=== PATIENT | male | born 1950 | race Caucasian/White ===

== ENCOUNTER 2017-07-15 15:53 | Emergency (ER) | payer MEDICARE, BC ==
[2017-07-15 17:12] VITALS: BP 138/82
--- NOTE | 2017-07-15 17:16 | UC ---
Throat Pain/Nasal Hipolito HPI - HPI Summary HPI Summary: 67 y/o male presents to the urgent care c/o sore throat, body aches, sinus congestion with PND and mild productive cough for the pst 2 days. Pt developed fever of 101.8F yesterday and today. He has been taking Tylenol PO to alleviate symptoms. Last taken was 1400pm today. Pt reports nasal congestion has yellowish discharge. He has not taking the flu vaccine this year. - History of Current Complaint Chief Complaint: UCRespiratory Stated Complaint: SORE THROAT/COUGH Time Seen by Provider: 07/15/17 17:05 Hx Obtained From: Patient Onset/Duration: Gradual Onset, Lasting Days - 2 days, Still Present Severity: Moderate Pain Intensity: 8 Pain Scale Used: 0-10 Numeric Cough: Productive - mild with yellowish phlegm Associated Signs & Symptoms: Positive: Sinus Discomfort, Nasal Discharge, Fever - Epiglottits Risk Factors Epiglottis Risk Factors: Negative - Allergies/Home Medications Allergies/Adverse Reactions: Allergies Allergy/AdvReac Type Severity Reaction Status Date / Time Penicillins Allergy Mild Swelling Verified 07/15/17 17:06 Home Medications: Home Medications Atorvastatin* [Lipitor 40 MG*] 40 mg BEDTIME 07/15/17 [History Confirmed ] Sitagliptin Phosphate [Januvia] 50 mg DAILY 07/15/17 [History Confirmed 07/15/17 ] glipiZIDE TAB* [Glucotrol TAB*] 5 mg BID 07/15/17 [History Confirmed 07/15/17] metFORMIN* [Glucophage 1000 MG TAB *] 1 tab BID 07/15/17 [History Confirmed 12/25] PMH/Surg Hx/FS Hx/Imm Hx Previously Healthy: Yes Endocrine History: Diabetes, Dyslipidemia - Surgical History Surgical History: Yes Surgery Procedure, Year, and Place: 2000 nephrectomy. 2004 hernia repair - Family History Known Family History: Positive: Diabetes - Social History Occupation: Retired Lives: With Family Alcohol Use: Rare Substance Use Type: None Smoking Status (MU): Never Smoked Tobacco - Immunization History Most Recent Influenza Vaccination: 2017 Vaccination Up to Date: Yes Review of Systems Constitutional: Fever, Chills, Other - body aches Skin: Negative Eyes: Negative ENT: Nasal Discharge, Sinus Congestion Respiratory: Cough Cardiovascular: Negative Gastrointestinal: Negative Genitourinary: Negative Motor: Negative Neurovascular: Negative Neurological: Headache Psychological: Negative Is Patient Immunocompromised?: No All Other Systems Reviewed And Are Negative: Yes Physical Exam Triage Information Reviewed: Yes Vital Signs: Initial Vital Signs Temp 99.1 F 07/15/17 17:07 Pulse 110 07/15/17 17:07 Resp 26 07/15/17 17:07 BP 138/82 07/15/17 17:07 Pulse Ox 98 07/15/17 17:07 - Additional Comments VITAL SIGNS: Reviewed. GENERAL: Patient is a well developed and nourished male who is sitting comfortable in the examining table. Patient is not in any acute respiratory distress. HEAD AND FACE: No signs of trauma. No ecchymosis, hematomas or skull depressions. No sinus tenderness. EYES: PERRLA, EOMI x 2, No injected conjunctiva, no nystagmus. No photophobia. EARS: Hearing grossly intact. Ear canals and tympanic membranes are within normal limits. Nose: edematous, erythematous nasal mucosa with yellowish nasal discharge. MOUTH: Positive pharynx with erythema, no exudates, mild palatal petechiae. no B/L tonsillar enlargement.Uvula in midline. NECK: Supple, trachea is midline, Positive anterior cervical lymphadenopathy, no JVD, no carotid bruit, no c-spine tenderness, neck with full ROM. No meningeal signs, no Kernig's or brudzinskis signs. CHEST: Symmetric, no tenderness at palpation LUNGS: Clear to auscultation bilaterally. No wheezing or crackles. CVS: Regular rate and rhythm, S1 and S2 present, no murmurs or gallops appreciated. ABDOMEN: Soft, non-tender. No signs of distention. No rebound no guarding, and no masses palpated. Bowel sounds are normal. EXTREMITIES: FROM in all major joints, no edema, no cyanosis or clubbing. NEURO: Alert and oriented x 3. No acute neurological deficits. Speech is normal and follows commands. SKIN: Dry and warm Throat Pain/Nasal Course/Dx - Course Course Of Treatment: 67 y/o male presents to the urgent care c/o sore throat, body aches, sinus congestion with PND and mild productive cough for the pst 2 days. Pt developed fever of 101.8F yesterday and today. He has been taking Tylenol PO to alleviate symptoms. Last taken was 1400pm today. Pt reports nasal congestion has yellowish discharge. He has not taking the flu vaccine this year. [facility] obtained. Pt with pharyngitis on examination. Rapid strep ordered, result: negative. Influenza A&B ordered: Influenza B positive.Pt Rx Tamiflu PO and advised to continue with Tylenol PO to alleviates symptoms of pain and swelling. Advised on hand washing and wear a mask to avoid spreading. Pt advised to rest, eat well and avoid strenuous exercise. If symptoms do not improve or worsen advised to return to the urgent care or f/u with her PCP for further evaluation and treatment. Pt understood and agreed with plan of care. - Differential Dx/Diagnosis Differential Diagnosis/HQI/PQRI: Influenza, Laryngitis, Otitis Media, Pharyngitis, Sinusitis, URI Provider Diagnoses: 1- Influenza B. 2-Pharyngitis. 3- fever Discharge - Discharge Plan Condition: Stable Disposition: HOME Prescriptions: Oseltamivir CAP* [Tamiflu CAP*] 75 mg PO BID #10 cap Patient Education Materials: Influenza (ED) Referrals: Arthur Chris MD [Primary Care Provider] - 2 Days Additional Instructions: 1- Please take the full course of the antiviral to avoid resistance. Encourage hand washing and wear a mask to avoid spreading. 2-Please continue taking Tylenol PO q6-8hrs prn as instructed after meals to alleviate fever, and sore throat. Increase fluid intake, eat well, rest and avoid strenuous exercise 3-If symptoms do not improve or worsen please return to the urgent care or f/u with your PCP in 2 days for further evaluation and treatment.
== END 2017-07-15 17:46 | disposition home or self-care (01) ==
LOC: UCCORT 15:53
DX: J10.1 Influenza due to other identified influenza virus with other respiratory manifestations (principal); J02.9 Acute pharyngitis, unspecified; R50.9 Fever, unspecified; Z88.0 Allergy status to penicillin; E78.5 Hyperlipidemia, unspecified; E11.9 Type 2 diabetes mellitus without complications; Z79.84 Long term (current) use of oral hypoglycemic drugs; Z79.899 Other long term (current) drug therapy
CPT/HCPCS: 87502; 87651; 99212; G0463

== ENCOUNTER 2018-02-19 11:00 | Emergency (ER) | payer MEDICARE, BC ==
[2018-02-19 11:37] VITALS: BP 136/80
--- NOTE | 2018-02-19 11:55 | UC ---
UC General HPI - HPI Summary HPI Summary: Patient states he fell from a horse on 02-07-18 and went to a small clinic in [place] on 02-10-18 at which time there was no detection of fracture. He has been taking aleve which helps and gives him about 5 hrs of relief but states pain continues on right lower ribcage. Pain on shoulder and clavicle has subsided. Patient states he has mild kidney insufficiency due to single kidney s/p nephrectomy. Hx of well controlled DM and HLD. - History of Current Complaint Chief Complaint: UCGeneralIllness Stated Complaint: RIGHT SIDE PAIN-FELL OFF HORSE 01/13/18 Time Seen by Provider: 02/19/18 11:30 Onset/Duration: Sudden Onset, Lasting Weeks Onset Severity: Moderate Current Severity: Severe Pain Intensity: 7 Pain Location at: right ribcage - Allergy/Home Medications Allergies/Adverse Reactions: Allergies Allergy/AdvReac Type Severity Reaction Status Date / Time Penicillins Allergy Swelling Verified 02/19/18 11:26 PMH/Surg Hx/FS Hx/Imm Hx Previously Healthy: Yes Endocrine History: Diabetes, Dyslipidemia - Surgical History Surgical History: Yes Surgery Procedure, Year, and Place: 2000 nephrectomy. 2004 hernia repair - Family History Known Family History: Positive: Diabetes - Social History Alcohol Use: Rare Substance Use Type: None Smoking Status (MU): Never Smoked Tobacco - Immunization History Most Recent Influenza Vaccination: 2017 Most Recent Tetanus Shot: UTD Vaccination Up to Date: Yes Review of Systems Musculoskeletal: Arthralgia, Myalgia All Other Systems Reviewed And Are Negative: Yes Physical Exam Triage Information Reviewed: Yes Appearance: Well-Appearing, No Pain Distress, Well-Nourished Vital Signs: Initial Vital Signs Temp 97.9 F 02/19/18 11:28 Pulse 65 02/19/18 11:28 Resp 20 02/19/18 11:28 BP 136/80 02/19/18 11:28 Pulse Ox 99 02/19/18 11:28 Vital Signs Reviewed: Yes Eyes: Positive: Conjunctiva Clear ENT: Positive: Hearing grossly normal Neck: Positive: Supple, Nontender, No Lymphadenopathy Respiratory: Positive: Chest non-tender, Lungs clear, Normal breath sounds, No respiratory distress Abdomen Description: Positive: Nontender, No Organomegaly, Soft, Other: - ventral hernia. Musculoskeletal Exam: Other - Tenderness on paraspinal lumbar area on right side and along right ribcage Course/Dx - Course Course Of Treatment: xray was negative for fracture , PA chest negative for pneumothorax - Differential Dx - Multi-Symptom Provider Diagnoses: Rib contusion Discharge - Sign-Out/Discharge Documenting (check all that apply): Patient Departure - Discharge Plan Condition: Stable Disposition: HOME Patient Education Materials: Rib Contusion (ED), Naproxen (By mouth), Lidocaine (On the skin) Referrals: Arthur Chris MD [Primary Care Provider] - - Billing Disposition and Condition Condition: STABLE Disposition: Home
--- NOTE | 2018-02-19 12:05 | RAD ---
HISTORY: trauma, fell from horse 10 days ago COMPARISONS: None VIEWS: 6, Frontal view of the chest with frontal and oblique views of the right hemithorax. FINDINGS: There is no displaced rib fracture or pneumothorax. The visualized lungs are clear. A hernia repair mesh is noted. IMPRESSION: NO DISPLACED RIB FRACTURE OR PNEUMOTHORAX.
== END 2018-02-19 12:36 | disposition home or self-care (01) ==
LOC: UCCORT 11:00
DX: S20.221A Contusion of right back wall of thorax, initial encounter (principal); V80.010A Animal-rider injured by fall from or being thrown from horse in noncollision accident, initial encounter; Y93.52 Activity, horseback riding; Y92.9 Unspecified place or not applicable; N28.9 Disorder of kidney and ureter, unspecified; Z90.5 Acquired absence of kidney; E11.9 Type 2 diabetes mellitus without complications; E78.5 Hyperlipidemia, unspecified; Z88.0 Allergy status to penicillin
CPT/HCPCS: 99212; G0463